=== PATIENT | female | born 1975 | race Caucasian/White ===

== ENCOUNTER 2017-06-08 09:37 | Day surgery (SDC) | payer OTHER ==
[~2017-06-08] VITALS: Ht 170.2 cm; Wt 99.8 kg
[~2017-06-08 09:37] MED LIST: AMBIEN PO; BUSP15 PO; CLONAZEPAM1 M1 PO; FLE10 PO; HYDR50CA PO; IMI100 PO; IND10 PO; K20 PO; Lactated Ringer's 1,000 ML IV ONE; PROM12.510 PO; PRZ2C PO; RISP0.5T3 PO; SERT100T PO; SMV40T PO; TOPI200T2 PO
[2017-06-08] MEDS ORDERED: Propofol 10,000 mCg/mL 20 mL Inj ONE (09:38)
[2017-06-08] MEDS ORDERED: fentaNYL-PF 50 mCg/mL 2 mL Inj ONE (09:38)
[2017-06-08 10:09] VITALS: BP 139/98; PULSE 95; RESP 14; O2SAT 98
[2017-06-08] MEDS ORDERED: Lactated Ringer's 1,000 ML IV SCH (10:38)
--- NOTE | 2017-06-08 10:38 | PCM.HPANE ---
Patient Data Surgeon Admitting Provider: Attending Provider:Yevgeniy Garcia MD Primary Care Physician:Romana Baltazar MD Other Provider:Naya Ambroseingham Anesthesia Reason for Visit Blood In Stool, Epigastric Pain Ht/WT & BMI Body Mass Index Allergies Coded Allergies: Duck Feathers (Verified Allergy, Severe, Rash,Itching,, 06/04/17) ketorolac (Verified Allergy, Intermediate, Rash, 10/23/15) metoclopramide (Verified Allergy, Intermediate, Rash, 10/23/15) Uncoded Allergies: H1N1 VACCINE (Allergy, Severe, Anaphylaxis, 08/20/11) Past Anesthesia History Anesthesia History: Denies:: Anesthesia Reactions Diabetes History Hx Diabetes?: No MRSA MRSA: No Medications Reported Medications Propranolol-Expunged Drug, Do Not Renew! 10 Mg Tab80 Mg PO HS 09/17/12 Prazosin Hcl-Expunged Drug, Do Not Renew! (Minipres-Expunged Drug, Do Not Renew! )2 Mg Cap16 Mg PO HS 08/21/11 ClonazePAM-Expunged Drug, Do Not Renew! 1 Mg Tablet1 Mg PO DAILY 08/21/11 Discontinued Reported Medications Simvastatin-Expunged Drug, Choose New Med! 40 Mg Snaxhq70 Mg PO HS #30 TAB INPATIENT MAX DOSE 40 MG 09/17/12 Sertraline-Expunged Drug, Choose New Med! 100 Mg Pcngaf168 Mg PO 09/17/12 Sumatriptan-Expunged Drug, Do Not Renew! (Imitrex-Expunged Drug, Do Not Renew!) 100 Mg Wgz319 Mg PO 09/17/12 Promethazine-Expunged Drug, Do Not Renew! 12.5 Mg Lsfabt52.5-25 Mg PO 09/17/12 Topiramate-Expunged Drug, Do Not Renew! 200 Mg Yrdczg166 Mg PO 09/17/12 Cyclobenzaprine-Expunged Drug, Do Not Renew! (Flexeril-Expunged Drug, Do Not Renew!)10 Mg Rukyff28 Mg PO TID #30 TAB FOR MUSCLE SPASM 09/17/12 Zolpidem-Expunged Drug, Do Not Renew! 5 Mg Tablet5 Mg PO 09/17/12 Topiramate-Expunged Drug, Do Not Renew! 200 Mg Bipdnf540 Mg PO 09/17/12 Risperidone-Expunged Drug, Do Not Renew! 0.5 Mg Tablet0.5 Mg PO 09/17/12 Hydroxyzine Susanna-Expunged Drug, Do Not Renew! (Vistaril-Expunged Drug, Do Not Renew!)50 Mg Kqyfipu85 Mg PO 09/17/12 Potassium Chl-Expunged Drug, Do Not Renew! (B-GFS-Tavpmiat Drug, Do Not Renew!) 20 Meq Tabsr20 Meq PO BID #30 TAB TAKE WITH FOOD 09/17/12 Buspirone-Expunged Drug, Do Not Renew! 15 Mg Tthjwf53 Mg PO BID 08/21/11 History History of ENT Problems?: No HEENT History: Denies:: Abnormal Airway Cataracts Difficult Intubation Dysphagia Glaucoma Hearing Problem Sinus Problem TMJ Denture Type: None Teeth Condition: Within Normal Limits Hx of Heart Problems?: Yes Cardiovascular History: Positive for:: Chest Pain (current event) Denies:: Congestive Heart Failure Hypertension Hx of Respiratory Problem?: No Respiratory History: Denies:: Asthma COPD Chest Surgery Dyspnea Emphysema Hemoptysis Pneumonia Tuberculosis Hx Neurologic Problems?: Yes Neurological History: Positive for:: Headaches (hx 6 ft drop on head) Denies:: Alzheimer's Disease CVA Dementia Dizziness Parkinson's Disease Seizures Hx of GI Problems?: No Hx of Problems?: Yes Genitourinary History: Positive for:: Kidney Stones (kidney gravel) Urinary Tract Infection Female Hx: Denies:: Currently Endometriosis Pelvic Inflammatory Problems with Breasts? Hx Musculoskeletal Problems?: Yes Musculoskeletal History: Positive for:: Musculoskeletal Trauma Denies:: Back Injury Joint Replacement Hx of Psycho/Social Problems?: Yes Psycho Social History: Positive for:: Anxiety Hx Depression Denies:: Bipolar Disorder Suicide Attempt (ideation) Hx Surgeries?: No Hx Any Other Health Problems?: No Other History: Positive for:: Hospitalization Denies:: Cancer Endocrine Disease Thyroid Disease History Blood Transfusions: Denies:: Blood Transfuse Reaction Blood Transfusions Hx Diabetes: No Hx Alcohol Use: NoHx Substance Use: No Smoking Status: Never Smoker Have You Smoked inLast 12 mo: No Stop/Bang Risk Assessment Category Category 1A: Patient has history of documented sleep apnea, and HAS NOT received any narcotic, sedative or anesthesia administration during this stay. Category 1B: Patient has history of documented sleep apnea, and HAS received any narcotic , sedative or anesthesia administration during this stay Category 2: Patient has SUSPECTED Obstructive Sleep Apnea, and HAS received any narcotic , sedative or anesthesia administration during this stay. Category 3: Patient has SUSPECTED Obstructive Sleep Apnea and HAS NOT received narcotic, sedative or anesthesia administration during this stay. Category 4: Outpatient in Procedural Areas with known sleep apnea or who screen positive for High Risk via the STOP/BANG questionnaire. Exam Exam Vital Signs Vital Signs Date Time Temp Pulse Resp B/P Pulse Ox O2 Delivery O2 Flow Rate FiO2 06/08/17 10:09 36.2 95 14 139/98 98 Room Air General Appearance: Alert HEENT/AIRWAY: MP 2, Neck Movement (FROM, 3 FB) Lungs: Clear to Auscultation Heart: Regular Rate/Rhythm Plan Impression Patient chart reviewed, patient interviewed and anesthestic plan with risks, benefits, and alternatives discussed, and informed consent obtained. NPO per Anesth. Guidelines: Yes ASA Physical Status: ASA2 Mod Systemic Disease Anesthetic Plan: MAC Bene/Risks/Altern/Consents: Yes HP Complete Prior to Induction: Yes Salas Hernández MD Jun 08, 2017 10:16
[2017-06-08] MEDS ORDERED: Ondansetron 2 mg/mL 2 mL Inj IVPUSH PRN (10:40)
[2017-06-08 11:12] VITALS: BP 122/74; PULSE 73; RESP 16; O2SAT 95
--- NOTE | 2017-06-08 11:15 | PCM.ANEP1 ---
Post Anesthesia PACU Phase 1 Assessment Vital Signs Vital Signs Date Time Temp Pulse Resp B/P Pulse Ox O2 Delivery O2 Flow Rate FiO2 06/08/17 11:12 73 16 122/74 95 Room Air 06/08/17 10:09 36.2 95 14 139/98 98 Room Air Anesthetic Administered: MAC Level of Alertness: Awake, talking VILLEGAS's with Equal Strength: Yes Pain: No Nausea or Vomiting: No CV Function & Hydration Stable: Yes Airway Device: Oxygen Delivery: Room Air Lungs: Clear to Auscultation Dermatome Level: Full Sensation PACU Phase 2 Assessment Complications: No Follow up Care: N/A Patient Instructions Provided: N/A Salas Hernández MD Jun 08, 2017 11:15
[2017-06-08 11:22] VITALS: BP 121/80; PULSE 76; RESP 16; O2SAT 95
[2017-06-08 11:28] VITALS: BP 130/87; PULSE 67; RESP 16; O2SAT 95
--- NOTE | 2017-06-08 11:44 | ENDO ---
[address] [address] ENDOSCOPY PROCEDURE PATIENT: JUNG THAPA : 1975 MR#: [id number] ADMIT: 06/08/2017 JOB ID: [id number] DATE OF SERVICE: 06/08/2017 TYPE OF OPERATION: 1. Esophagogastroduodenoscopy with biopsy. 2. Colonoscopy with biopsy. PREOPERATIVE DIAGNOSIS(ES): 1. Diarrhea. 2. Rectal bleeding. 3. Abdominal pain. POSTOPERATIVE DIAGNOSIS(ES): 1. Normal upper endoscopy, status post biopsy. 2. Normal colonoscopy status post biopsy. ANESTHESIA: Monitored anesthesia care. COMPLICATIONS: None. BLOOD LOSS: Minimal. DESCRIPTION OF PROCEDURE: After risks and benefits were explained to the patient, informed consent was obtained. After anesthesia administered, an upper endoscope was then inserted into the mouth, intubating the esophagus, stomach and second portion of the duodenum, and mucosa carefully examined. After the procedure was done, the scope was withdrawn and the procedure terminated. Colonoscope was then inserted from the rectum to the terminal ileum. Mucosa carefully examined. Prep of the patient was fair. After the procedure was done, the scope withdrawn and the procedure terminated. FINDINGS: Upon inspection of the esophagus, the esophagus was normal without masses, ulcers, or lesions. Z-line located at 40 cm from incisors. Upon entering the stomach, the stomach was also normal without masses, ulcers, or lesions. Retroflexion was normal. Duodenal bulb, first and second portions normal. Biopsies taken of the duodenum, antrum, body of stomach. Upon inspection of the anus, no masses, hemorrhoids, ulcers, or fissures that were seen. Throughout the entire examination, there were no polyps, masses, or lesions. Biopsies taken of the terminal ileum and random colon. Retroflexion normal. IMPRESSION: 1. Normal upper endoscopy. 2. Normal colonoscopy, status post biopsy. 3. Small internal hemorrhoids. RECOMMENDATIONS: Await pathology results. Follow up in GI clinic as needed. Stool softener as needed.
--- NOTE | 2017-06-10 15:53 | PATH ---
SURGICAL PATHOLOGY Attending Physician:Yevgeniy Garcia MD CASE STATUS: Signed Out PATIENT NAME: JUNG THAPA PID: [id number] : 1975 DATE COLLECTED:06/08/2017 20:27 SPECIMEN: 1: Duodenum, Biopsy 2: Stomach, Antrum, Biopsy 3: Gastric, Biopsy 4: Ileum, Biopsy 5: Colon, Biopsy CLINICAL HISTORY: 1). DUODENAL BIOPSY, RULE OUT H PYLORI 2). ANTRUM BIOPSY, RULE OUT H PYLORI 3). GASTRIC BODY BIOPSY, RULE OUT H PYLORI 4). TERMINAL ILEUM BIOPSY 5). RANDOM COLON BIOPSY FINAL DIAGNOSIS: 1. Duodenum, Biopsy: Duodenal mucosa with no diagnostic abnormality. Negative for active inflammation, features of sprue, dysplasia or malignancy. 2. Antrum, Biopsy: Gastric antral mucosa with no diagnostic abnormality. Helicobacter organism not identified. Negative for intestinal metaplasia, dysplasia, and malignancy. 3. Gastric Body, Biopsy: Gastric body mucosa with no diagnostic abnormality. Helicobacter organisms not identified. Negative for intestinal metaplasia, dysplasia or malignancy. 4. Terminal Ileum, Biopsy: Ileal mucosa with no diagnostic abnormality. Negative for active inflammation, granulomata, dysplasia or malignancy. 5. Random Colon, Biopsies: Colonic mucosa with no diagnostic abnormality. Negative for active or microscopic colitis. Negative for granulomata, dysplasia or malignancy. ICD10: R19.7 GROSS DESCRIPTION: The specimen is received in five formalin filled containers labeled with the patient's name. 1). The specimen is labeled "duodenal" and consists of 2 portions of tissue which aggregate to 0.2 x 0.2 x 0.2 CM. The specimen is entirely submitted in cassette 1A. 2). The specimen is labeled "antrum" and consists of a 0.2 x 0.2 x 0.2 CM portion of tissue which is entirely submitted in cassette 2A. 3). The specimen is labeled "gastric body" and consists of 2 portions of tissue which aggregate to 0.3 x 0.2 x 0.2 CM. The specimen is entirely submitted in cassette 3A. 4). The specimen is labeled " TI " and consists of 2 portions of tissue which aggregate to 0.3 x 0.3 x 0.2 CM. The specimen is entirely submitted in cassette 4A. 5). The specimen is labeled "random colon" and consists of multiple portions of tissue which aggregate to 0.4 x 0.3 x 0.2 CM. The specimen is entirely submitted in cassette 5A. 06/08/2017DC ICD-9 CODES: CPT CODES: 1: 67184 2: 57370 3: 40514 4: 47693 5: 58586 Electronically Signed Out Stephen Richey MD, Ph.D. [facility] [address], [place] [address] Technical component performed at [facility], [facility] [address], [place], [address]
== END 2017-06-08 23:59 | disposition home or self-care (01) ==
LOC: END 09:37
PROVIDERS: ATTEND Internal Medicine Gastroenterology
DX: K92.1 Melena (principal); R10.13 Epigastric pain; R19.7 Diarrhea, unspecified; K64.8 Other hemorrhoids; R51 Headache; F41.9 Anxiety disorder, unspecified; Z87.442 Personal history of urinary calculi; Z79.899 Other long term (current) drug therapy
CPT/HCPCS: 43239; 45380; J2250; J2704; J3010; J7120